=== PATIENT | male | born 1980 | race Hispanic/Latino ===

== ENCOUNTER 2017-07-17 12:22 | Emergency (ER) | payer SELFPAY ==
[~2017-07-17] VITALS: Ht 172.7 cm; Wt 71.3 kg
[~2017-07-17 12:22] MED LIST: AMOXICILLIN875 MG PO; MOTRIN600 MG PO; NYQUIL D COLD295 ML PO
[2017-07-17] MEDS ORDERED: AMOXICILLIN875 MG PO (14:11)
[2017-07-17] MEDS ORDERED: NORCO 5/3251 TABLET PO (14:11)
[2017-07-17] MEDS ORDERED: MOTRIN800 MG PO (14:11)
[2017-07-17 14:28] VITALS: BP 148/76
== END 2017-07-17 14:30 | disposition home or self-care (01) ==
LOC: EME 12:22
DX: K08.89 Other specified disorders of teeth and supporting structures (principal); F17.200 Nicotine dependence, unspecified, uncomplicated
CPT/HCPCS: 99281; 99284; J1885